=== PATIENT | female | born 1985 | race Caucasian/White ===

== ENCOUNTER → 2017-08-16 | Outpatient (CLI) | payer MEDICAID ==
[2017-08-16 12:24] LABS: URINE APPEARANCE CLEAR; URINE BILIRUBIN NEGATIVE (NEGATIVE); URINE BLOOD 50 ery/uL (NEGATIVE); URINE COLOR YELLOW; URINE GLUCOSE NEGATIVE (NEGATIVE); URINE KETONE NEGATIVE (NEGATIVE); URINE LEUKOCYTE ESTERASE NEGATIVE (NEGATIVE); URINE NITRATE NEGATIVE (NEGATIVE); URINE PROTEIN(semi-quant) NEGATIVE (NEGATIVE); URINE UROBILINOGEN NORMAL (NORMAL)
== END ==
LOC: LAB 11:47
PROVIDERS: Physician Assistant
DX: R10.9 Unspecified abdominal pain (principal); N92.6 Irregular menstruation, unspecified

== ENCOUNTER 2018-06-07 10:16 | Emergency (ER) | payer MEDICAID ==
[~2018-06-07] VITALS: Ht 160 cm; Wt 87.3 kg
[2018-06-07] MEDS ORDERED: CYCLOBENZAPRINE10 M1 PO (11:32)
[2018-06-07] MEDS ORDERED: KETOROLAC10 MG PO (11:32)
[2018-06-07] MEDS ORDERED: PERCOCET 325 MG1 TA2 PO (12:03)
[2018-06-07 12:58] VITALS: BP 135/73
== END 2018-06-07 12:53 | disposition home or self-care (01) ==
LOC: ED 10:16
DX: S16.1XXA Strain of muscle, fascia and tendon at neck level, initial encounter (principal); M62.838 Other muscle spasm; M62.830 Muscle spasm of back; F17.200 Nicotine dependence, unspecified, uncomplicated
CPT/HCPCS: J1885; J2360

== ENCOUNTER 2018-08-15 11:51 | Emergency (ER) | payer MEDICAID ==
[~2018-08-15] VITALS: Ht 160 cm; Wt 86.4 kg
[~2018-08-15 11:51] MED LIST: CYCLOBENZAPRINE10 M1 PO; KETOROLAC10 MG PO; PERCOCET 325 MG1 TA2 PO
[2018-08-15] MEDS ORDERED: NORCO 325 MG-51 TA1 PO (12:31)
[2018-08-15] MEDS ORDERED: CIPRODEX 0.3%-7.5 ML OT (12:31)
[2018-08-15 12:38] VITALS: BP 144/97
== END 2018-08-15 12:38 | disposition home or self-care (01) ==
LOC: ED 11:51
DX: H60.93 Unspecified otitis externa, bilateral (principal); F17.200 Nicotine dependence, unspecified, uncomplicated; Z88.0 Allergy status to penicillin; Z79.899 Other long term (current) drug therapy

== ENCOUNTER 2019-03-01 07:13 | Emergency (ER) | payer MEDICAID ==
[~2019-03-01] VITALS: Ht 162.6 cm; Wt 86.4 kg
[~2019-03-01 07:13] MED LIST changes: +CIPRODEX 0.3%-7.5 ML OT; +NORCO 325 MG-51 TA1 PO
[2019-03-01] MEDS ORDERED: CIPRO500 M1 PO (07:58)
[2019-03-01 08:34] VITALS: BP 134/94
== END 2019-03-01 08:33 | disposition home or self-care (01) ==
LOC: ED 07:13
DX: H60.312 Diffuse otitis externa, left ear (principal); F17.210 Nicotine dependence, cigarettes, uncomplicated
CPT/HCPCS: J1885

== ENCOUNTER → 2019-11-01 | Outpatient (CLI) | payer SELFPAY ==
[~2019-11-01] MED LIST changes: +CIPRO500 M1 PO
== END ==
LOC: LAB 10:46
DX: R10.12 Left upper quadrant pain (principal); R31.9 Hematuria, unspecified